=== PATIENT | female | born 1995 | race Caucasian/White ===

== ENCOUNTER 2020-03-21 13:30 | Outpatient (REF) | payer MEDICAID, SELFPAY ==
--- NOTE | 2020-03-21 13:39 | XR_ITS ---
EXAMINATION: XR LUMBOSACRAL SPINE WITH OBLIQUES CLINICAL INFORMATION: Low back pain. COMPARISON: None TECHNIQUE: 5 views of the lumbar spine FINDINGS: Normal alignment without subluxation. There appears be transitional anatomy, with apparent partial sacralization of the L5 vertebral body. Vertebral body heights are maintained. The disc spaces are maintained. No evidence of acute fracture. Bilateral SI joints are intact. XR/XR lumbar spine 4V min IMPRESSION: Suspected transitional anatomy, as detailed above. No evidence of acute osseous abnormality.
== END 2020-03-21 13:31 | disposition home or self-care (01) ==
LOC: HO.XRAY 13:30
PROVIDERS: PCP Internal Medicine; Visit Provider Internal Medicine
DX: M54.5 Low back pain (principal); V89.2XXS Person injured in unspecified motor-vehicle accident, traffic, sequela
CPT/HCPCS: 72110

== ENCOUNTER → 2020-10-25 13:51 | Outpatient (BNVA) | payer MEDICAID, SELFPAY | PROVIDERS: Visit Provider Advanced Practice Midwife | DX: N30.10 Interstitial cystitis (chronic) without hematuria (principal); Z87.42 Personal history of other diseases of the female genital tract | CPT/HCPCS: 99202 ==

== ENCOUNTER → 2021-05-07 10:01 | Outpatient (BNVA) | payer MEDICAID, SELFPAY | PROVIDERS: PCP Internal Medicine; Visit Provider Obstetrics & Gynecology | DX: Z34.01 Encounter for supervision of normal first pregnancy, first trimester (principal) | CPT/HCPCS: 99212 ==

== ENCOUNTER 2021-05-11 13:22 | Outpatient (REF) | payer MEDICAID, SELFPAY ==
--- NOTE | ~2021-05-11 | US_ITS ---
EXAMINATION: OBSTETRICAL ULTRASOUND, FIRST TRIMESTER HISTORY: 26-year-old at 7.1 weeks of gestation Irregular menses LMP: 03/22/2022 COMPARISON: None TECHNIQUE: Real time transabdominal imaging with color and M-mode Doppler. FINDINGS: A single, live IUP CRL of 10.1 mm c/w 7.1wks is noted. Heart Rate: 136 beats per minute. Both maternal ovaries are seen and appear normal. GESTATIONAL AGE: 1. GA from LMP: 7.1 wks 2. GA from AUA: 7.1 wks ESTIMATED DATE OF DELIVERY: 1. KELLY from LMP: 12/27/2021 2. KELLY from AUA: 12/27/2021 US/US OB <= 14 weeks fetus IMPRESSION: A single live IUP CRL is consistent with 7.1 weeks, confirming the KELLY of 12/27/2021. Thank you for allowing me to participate in her care.
== END 2021-05-11 13:23 | disposition home or self-care (01) ==
LOC: HO.US 13:22
PROVIDERS: Visit Provider Obstetrics & Gynecology
DX: Z34.91 Encounter for supervision of normal pregnancy, unspecified, first trimester (principal); Z3A.01 Less than 8 weeks gestation of pregnancy
CPT/HCPCS: 76801

== ENCOUNTER 2022-03-06 13:58 | Emergency (ER) | payer MEDICAID, SELFPAY ==
--- NOTE | ~2022-03-06 | XR_ITS ---
EXAMINATION: XR CHEST CLINICAL INFORMATION: Shortness of breath with question of viral pneumonia COMPARISON: None TECHNIQUE: Frontal view of the chest was obtained. FINDINGS: No significant abnormality is noted involving the heart, lungs, mediastinum, bony thorax or soft tissues. XR/XR chest 1V IMPRESSION: Unremarkable examination.
[2022-03-06 17:01] VITALS: BP 107/72; PULSE 92; RESP 16; TEMP 37.2; O2SAT 99; BMI 20.2
--- NOTE | 2022-03-06 17:10 | ED.URI ---
HPI - URI/Sore Throat General Chief Complaint: Upper Respiratory Symptoms <Juan Schultz MD - Last Filed: 03/06/22 17:19> Stated Complaint: flu like symptoms <Juan Schultz MD - Last Filed: 03/06/22 17:19> Time Seen by Provider: 03/06/22 18:29 <Juan Schultz MD - Last Filed: 03/06/22 17:19> Source: patient <MORGAN Dumont - Last Filed: 03/06/22 19:27> Mode of arrival: ambulatory <MORGAN Dumont - Last Filed: 03/06/22 19:27> Limitations: no limitations <MORGAN Dumont - Last Filed: 03/06/22 19:27> History of Present Illness HPI Narrative: This is a 27-year-old female currently 2 months presenting to the emergency department with dry cough, shortness of breath with coughing, nausea, body aches, fatigue, malaise, fevers x4 days. Patient tells me she feels like she has the flu symptoms started suddenly. Tells me she has a at home so she wanted to come in to get checked out. Patient reports when she took her temperature at home was 102. She tells me she only feels short of breath when she is coughing she does not experience shortness of breath with exertion or at rest. Patient denies headache, vision changes, vomiting, abdominal pain, chest pain, leg swelling, weakness. Patient eating and drinking without difficulty. Appears to be in good spirits. <MORGAN Dumont - Last Filed: 03/06/22 19:27> Related Data Home Medications: Home Medications Medication Instructions Recorded Confirmed vitamin with calcium 0 tab PO 05/07/21 no.72-iron 27 mg-folic acid 1 mg tablet (M- Plus) Previous Rx's Medication Instructions Recorded albuterol sulfate 2.5 mg/3 mL 2.5 mg (3 mL) inhalation Q6H #75 mL 03/06/22 (0.083 %) solution for nebulization benzonatate 100 mg capsule 100 mg PO BID PRN cough #20 caps 03/06/22 prednisone 20 mg tablet 40 mg PO DAILY 5 days #10 tabs 03/06/22 <Juan Schultz MD - Last Filed: 03/06/22 17:19> Allergies/Adverse Reactions: Allergies Allergy/AdvReac Type Severity Reaction Status Date / Time No Known Allergies Allergy Verified 10/25/20 14:06 [No Known Allergies*] <Juan Schultz MD - Last Filed: 03/06/22 17:19> Review of Systems Review of Systems: Constitutional : No Weight loss, + Fever, + Chills, + Fatigue, + Malaise ENT/Mouth : No sore throat, No Rhinorrhea Eyes: No Eye Pain, No Swelling, No Redness Cardiovascular : No Chest Pain, No SOB, No Dyspnea on Exertion, No Orthopnea, No Edema, No Palpitations Respiratory : + Cough, No Sputum, No Wheezing Gastrointestinal : No Nausea, No Vomiting, No Diarrhea, No Constipation, No abdominal Pain, No Hematochezia, No Melena Genitourinary : No Dysuria, No Urinary Frequency, No Hematuria, Musculoskeletal : No joint pain, + Myalgias, No Joint Swelling Skin : No Skin Lesions, No rash Neuro : No Weakness, No Numbness, No Dizziness, No Headache Psych : No Anxiety/Panic, No Depression All other systems reviewed and are negative <MORGAN Dumont - Last Filed: 03/06/22 19:27> Yes all other systems are reviewed and are negative <MORGAN Dumont - Last Filed: 03/06/22 19:27> PMFSH Past Medical History Attestation statement: The following information was validated with the patient. <MORGAN Dumont - Last Filed: 03/06/22 19:27> Source: old records reviewed and nursing notes reviewed <MORGAN Dumont - Last Filed: 03/06/22 19:27> Medical History: Medical History Interstitial cystitis <Juan Schultz MD - Last Filed: 03/06/22 17:19> Social History Social History: Social History Alcohol intake: never Patient Tobacco Use Status: Never used Tobacco Advance Directives: No Advance Directives Information Provided: No Gender identity: Female <Juan Schultz MD - Last Filed: 03/06/22 17:19> Physical Exam Vital Signs: Vital Signs: Last Vital Signs Temp 97.0 F 03/06/22 18:11 Pulse 80 03/06/22 18:59 Resp 16 03/06/22 18:59 BP 107/72 03/06/22 17:01 Pulse Ox 98 03/06/22 18:11 O2 Del Method 03/06/22 18:11 BMI result Body Mass Index 20.2 <Juan Schultz MD - Last Filed: 03/06/22 17:19> Vital Signs: Last Vital Signs Temp 97.0 F 03/06/22 18:11 Pulse 80 03/06/22 18:59 Resp 16 03/06/22 18:59 BP 107/72 03/06/22 17:01 Pulse Ox 98 03/06/22 18:11 O2 Del Method 03/06/22 18:11 BMI result Body Mass Index 20.2 vss <MORGAN Dumont - Last Filed: 03/06/22 19:27> Appearance: Alert.? Oriented X3.? No acute distress.? Head: Normocephalic, atraumatic, no step-offs or deformities Eyes: Pupils equal, round and reactive to light.? ENT: Pharynx normal.? Neck: Normal inspection.? Neck supple.? CVS: Normal heart rate and rhythm.? Pulses normal.? Respiratory: No respiratory distress.? Breath sounds with inspiratory and expiratory wheezing throughout..? Abdomen: Soft and nontender.? Skin: Skin warm and dry.? Normal skin color.? Normal skin turgor.? Extremities: No lower extremity edema.? No calf ttp. 5/5 strength to bilateral upper and lower extremities Neuro: Oriented X 3.? No motor deficit.? No sensory deficit. CN 2-12 intact <MORGAN Dumont - Last Filed: 03/06/22 19:27> Course Course Course Narrative: RME: 27-year-old female x2 months, prevents with upper respiratory infection with symptoms with fever, chills, cough, nausea, shortness of breath x4 days. Patient is not vaccinated for COVID were for influenza. Vital signs were normal. Patient is awake and alert, pleasant cooperative. HEENT exam: Head is normal cephalic, atraumatic, pupils were equal round reactive light, sclera contact however normal, PERRLA moist membranes. Neck: Supple with no adenopathy. Lungs: Clear to auscultation breath sounds symmetric bilaterally. Abdomen: Soft, nontender, nondistended with normoactive bowel sounds. Back: No CVA tenderness. Neurologic exam is nonfocal. I ordered COVID-19, influenza and RSV <Juan Schultz MD - Last Filed: 03/06/22 17:19> Reevaluation(s) Reevaluation #1: Chest x-ray unremarkable. Patient noted to be flu positive, not a candidate for Tamiflu as her symptoms have been ongoing for greater than 48 hours. Educated on supportive measures, proper hygiene. Advised to return with any new or worsening symptoms. At time of discharge patient with stable vitals, saturating 98% on room air, afebrile appears comfortable, tolerating p.o.. Comfortable discharge home. <MORGAN Dumont - Last Filed: 03/06/22 19:27> Time: 19:27 <MORGAN Dumont - Last Filed: 03/06/22 19:27> Medications Administered Discontinued Medications Generic Name Dose Route Start Last Admin Trade Name Freq PRN Reason Stop Dose Admin Albuterol Sulfate 7.5 mg/ 10 mg 03/06/22 18:40 03/06/22 18:53 Albuterol Sulfate 2.5 mg INHALE 03/06/22 18:41 10 mg ONCE ONE Administration <Juan Schultz MD - Last Filed: 03/06/22 17:19> Medications Administered Discontinued Medications Generic Name Dose Route Start Last Admin Trade Name Freq PRN Reason Stop Dose Admin Albuterol Sulfate 7.5 mg/ 10 mg 03/06/22 18:40 03/06/22 18:53 Albuterol Sulfate 2.5 mg INHALE 03/06/22 18:41 10 mg ONCE ONE Administration <MORGAN Dumont - Last Filed: 03/06/22 19:27> MDM - URI/Sore Throat MDM Narrative Medical decision making narrative: 1850 27-year-old female presents with flu-like symptoms x4 days. Physical exam significant for inspiratory and expiratory wheezing. Likely viral in origin, patient is not an asthmatic. Unlikely PE, pneumonia. Plan at this time is viral panel, chest x-ray. Will give patient albuterol treatment as she does have significant wheezing on exam. <MORGAN Dumont - Last Filed: 03/06/22 19:27> Medical Records Attestation: I reviewed the patient's medical records. <MORGAN Dumont - Last Filed: 03/06/22 19:27> Lab Data Attestation: I reviewed the patient's lab results. <MORGAN Dumont - Last Filed: 03/06/22 19:27> Labs: Lab Results 03/06/22 Range/Units 17:34 Influenza Type A (PCR) POSITIVE A (Negative) Influenza Type B (PCR) NEGATIVE (Negative) RSV RNA Qual (PCR) NEGATIVE (Negative) SARS-CoV-2 RNA (RT-PCR) NEGATIVE (Negative) <Juan Schultz MD - Last Filed: 03/06/22 17:19> Lab Results 03/06/22 Range/Units 17:34 Influenza Type A (PCR) POSITIVE A (Negative) Influenza Type B (PCR) NEGATIVE (Negative) RSV RNA Qual (PCR) NEGATIVE (Negative) SARS-CoV-2 RNA (RT-PCR) NEGATIVE (Negative) <MORGAN Dumont - Last Filed: 03/06/22 19:27> Discharge Plan Discharge Clinical Impression: Influenza, Wheezing <Juan Schultz MD - Last Filed: 03/06/22 17:19> Patient Disposition: Home, Self-Care <Juan Schultz MD - Last Filed: 03/06/22 17:19> Instructions: Influenza (ED), How to Use a Breath-Activated Inhaler (ED), Wheezing (ED) <Juan Schultz MD - Last Filed: 03/06/22 17:19> Additional Instructions: Take your medications as prescribed. If you were prescribed antibiotics today, it is important that you take your medication to their entirety, do not skip any doses, do not finish them early. Follow-up with your primary care provider this week. Return to the emergency department with new or worsening symptoms. Such as fevers, chills, chest pain, shortness of breath, nausea, vomiting, dizziness, headache, vision changes, lethargy In case of emergency call 911 You are contagious. Please practice good hygiene!. XR/XR chest 1V IMPRESSION: Unremarkable examination. ? <Juan Schultz MD - Last Filed: 03/06/22 17:19> Prescriptions: New albuterol sulfate 2.5 mg /3 mL (0.083 %) solution for nebulization 2.5 mg inhalation Q6H Qty: 75 0RF prednisone 20 mg tablet 40 mg PO DAILY 5 Days Qty: 10 0RF benzonatate 100 mg capsule 100 mg PO BID PRN (Reason: cough) Qty: 20 0RF No Action M-Aston Plus 27 mg iron- 1 mg tablet 0 tab PO <Juan Schultz MD - Last Filed: 03/06/22 17:19> Referrals: Elena Sims [Primary Care Provider] - 2 days <Juan Schultz MD - Last Filed: 03/06/22 17:19> Stand Alone Forms: Work/School Release <Juan Schultz MD - Last Filed: 03/06/22 17:19>
[2022-03-06 18:11] VITALS: PULSE 80; TEMP 36.1; O2SAT 98
[2022-03-06 18:34] LABS: Influenza A PCR POSITIVE (Negative); Influenza B PCR NEGATIVE (Negative); Resp Syncy Virus RNA Qual PCR NEGATIVE (Negative); SARS COV2 PCR INHOUSE NEGATIVE (Negative)
[2022-03-06] MEDS: Albuterol Sulfate 7.5 MG, Albuterol Sulfate (0.083%) 2.5 MG 10 MG INHALE (18:53)
[2022-03-06 18:59] VITALS: PULSE 80; RESP 16; O2SAT 98
--- NOTE | 2022-03-06 19:42 | PC.NURSE ---
Discharge instructions reviewed with pt. Pt verbalizes understanding.
== END 2022-03-06 19:43 | disposition home or self-care (01) ==
PROVIDERS: Emergency Medicine Emergency Medical Services; Emergency Provider Internal Medicine
DX: J11.1 Influenza due to unidentified influenza virus with other respiratory manifestations (principal); R06.2 Wheezing; R50.9 Fever, unspecified; Z20.822 Contact with and (suspected) exposure to COVID-19
CPT/HCPCS: 0241U; 71045; 94640; 99284

== ENCOUNTER 2023-04-15 14:38 | Outpatient (REF) | payer MEDICAID, SELFPAY ==
[2023-04-16 16:53] LABS: C. trachomatis RNA TMA NOT DETECTED (NOT DETECTED); Candida glabrata RNA NOT DETECTED (NOT DETECTED); Candida species RNA DETECTED (NOT DETECTED); N. gonorrhoeae RNA TMA NOT DETECTED (NOT DETECTED); Trichomonas vaginalis RNA NOT DETECTED (NOT DETECTED)
== END 2023-04-15 14:39 | disposition home or self-care (01) ==
LOC: HO.CHCLNP 14:38
PROVIDERS: Visit Provider Advanced Practice Midwife
DX: R39.89 Other symptoms and signs involving the genitourinary system (principal); N89.8 Other specified noninflammatory disorders of vagina
CPT/HCPCS: 36415; 81513; 87086; 87481; 87491; 87591; 87661

== ENCOUNTER 2023-05-22 10:47 | Outpatient (REF) | payer MEDICAID, SELFPAY ==
[2023-05-22 11:56] LABS: Estimated Average Glucose 94 mg/dL; Hemoglobin A1c % 4.9 % (<6.0)
== END 2023-05-22 10:48 | disposition home or self-care (01) ==
LOC: HO.HHCL 10:47
PROVIDERS: Visit Provider Advanced Practice Midwife
DX: B37.31 Acute candidiasis of vulva and vagina (principal)
CPT/HCPCS: 36415; 83036

== ENCOUNTER 2023-06-12 10:49 | Outpatient (AMB) | payer MEDICAID, SELFPAY ==
--- NOTE | 2023-06-12 11:20 | A.OFFVIS_ITS ---
Intake Intake Visit Reasons: bladder pain R39.89 (Hx of IC) Intake Note: NEW Patient presents today to established treatment for Bladder Pain: Meds- None Allergies to Antibiotic- No Known Allergies Blood Thinner- None Children'S Lunchroom Supervisor Required: No Accompanied by: Self / Same As Patient Allergies No Known Allergies [No Known Allergies*] Allergy (Verified 06/12/23 11:43) HPI HPI Comments History of Present Illness Details Ole is a 28-year-old female who states she was diagnosed with IC, 2018. She states that she followed the IC diet and used herbal supplements marshmellow roots which was helpful to keep her bladder symptoms under control. She is currently breast feeding. She states that her IC symptoms have flared up. I have reviewed the IC diet, pamphlets provided. Urinalysis-no signs of infection. Plan oxybutynin 10 mg [facility] Medical History Interstitial cystitis Social History Alcohol intake: never Patient Tobacco Use Status: Never used Tobacco Gender identity: Female Female Reproductive History Menstrual Age of Menarche: 15 Review of Systems Const All systems reviewed & are unremarkable except as noted in HPI and below Reports no additional complaints Eyes Reports no additional complaints ENT Reports no additional complaints Card Reports no additional complaints Resp Reports no additional complaints GI Reports no additional complaints Reports as per HPI Musc Reports no additional complaints Skin/Breast Reports system reviewed and no additional complaints, except as documented Neuro Reports no additional complaints Psych Reports no additional complaints Endo Reports no additional complaints David/Lymph Reports no additional complaints Aller/Immun Reports no additional complaints Physical Exam Const General: cooperative, healthy appearing and no acute distress Orientation/consciousness: patient oriented x3 HEENT Head: Yes normal to inspection, Yes normocephalic and Yes atraumatic Eyes Conjunctivae: conjunctivae normal Neck Neck: Yes normal visual inspection and Yes trachea midline Chest Chest palpation & inspection: normal inspection of the chest Resp Effort & Inspection: normal respiratory effort Cardio Rate: regular rate GI Inspection: Yes normal to inspection Skin General skin exam: no rashes or lesions noted Neuro General: patient oriented x3 Extrem General: No edema Psych Appearance: grossly normal Results AMB Urinalysis, Automated UA Leukoctes 0 Mendez/uL Last Edit by ROMEL Schwarz on 06/12/23 11:42 UA Nitrite Negative Last Edit by ROMEL Schwarz on 06/12/23 11:42 UA Urobilinogen 0.2 mg/dL Last Edit by ROMEL Schwarz on 06/12/23 11:4 2 UA Protein 0 mg/dL Last Edit by ROMEL Schwarz on 06/12/23 11:42 UA pH 8.0 Last Edit by ROMEL Schwarz on 06/12/23 11:42 UA Blood 0 Wilbert/uL Last Edit by ROMEL Schwarz on 06/12/23 11:42 UA Specific [place] 1.010 Last Edit by ROMEL Schwarz on 06/12/23 11: 42 UA Ketone Negative Last Edit by ROMEL Schwarz on 06/12/23 11:42 UA Bilirubin 0 mg/dL Last Edit by ROMEL Schwarz on 06/12/23 11:42 UA Glucose 0 mg/dL Last Edit by Serge Doan Linus on 06/12/23 11:42 Results Reviewed Results Reviewed: Laboratory Last Values Urine pH (Auto) 8.0 06/12/23 11:37 Specific [place] (Auto) 1.010 06/12/23 11:37 Urine Protein (Auto) 0 mg/dL 06/12/23 11:37 Glucose (UA)(Auto) 0 mg/dL 06/12/23 11:37 Urine Ketones (Auto) Negative 06/12/23 11:37 Urine Blood (Auto) 0 Wilbert/uL 06/12/23 11:37 Urine Nitrite (Auto) Negative 06/12/23 11:37 Urine Bilirubin (Auto) 0 mg/dL 06/12/23 11:37 Urine Urobilinogen (Auto) 0.2 mg/dL 06/12/23 11:37 Leukocyte Esterase (Auto) 0 Mendez/uL 06/12/23 11:37 Assessment & Plan Assessment & Plan (1) Urinary frequency: Code(s): R35.0 - Frequency of micturition (2) Chronic interstitial cystitis: Code(s): N30.10 - Interstitial cystitis (chronic) without hematuria Plan Oxybutynin 10 mg daily Renal ultrasound complete Orders: Orders AMB Urinalysis Automated 06/12/23 Z13.9 - Encounter for screening, unspecified US retroperitoneal comp 06/12/23 R35.0 - Frequency of micturition Medications: New oxybutynin chloride ER 10 mg PO DAILY 30 tabs 3RF Patient Instructions: The patient had an opportunity to ask questions regarding treatment plan. All questions were answered. The patient expressed understanding and agreement with the above treatment plan. The patient is aware they should contact our office by phone for worsening of their current condition or the appearance of new symptoms. Compliance is encouraged with any medications and followup testing that is ordered. It is a privilege to be allowed the opportunity to participate in the urologic care of your patient. If you have any questions or concerns regarding treatment for the above conditions please do not hesitate to contact me. The office telephone contact is [phone]. This note is constructed in part using voice recognition software. While every effort has been made to ensure accuracy bridge inspector errors may have been included. Yours sincerely, Sudha Choi MD Coding Level of Care Code New Pt Level 3 (35455) Diagnoses Urinary frequency R35.0 Chronic interstitial cystitis N30.10
== END 2023-06-12 12:02 | disposition home or self-care (01) ==
PROVIDERS: Visit Provider Urology
DX: R35.0 Frequency of micturition (principal); N30.10 Interstitial cystitis (chronic) without hematuria
CPT/HCPCS: 99203

== ENCOUNTER → 2023-06-12 10:49 | Outpatient (BNVA) | payer MEDICAID, SELFPAY | PROVIDERS: Visit Provider Urology | DX: R35.0 Frequency of micturition (principal); N30.10 Interstitial cystitis (chronic) without hematuria | CPT/HCPCS: 81003; 99202 ==

== ENCOUNTER 2023-07-10 14:27 | Outpatient (REF) | payer MEDICAID, SELFPAY ==
--- NOTE | ~2023-07-10 | US_ITS ---
EXAMINATION: US RETROPERITONEAL COMPLETE (RENAL) CLINICAL INFORMATION: Frequency of micturition. COMPARISON: None available. TECHNIQUE: Real-time imaging of the kidneys and bladder. FINDINGS: RIGHT KIDNEY: 10.4 x 3.9 x 5.5 cm (SAG x AP x TRV). The kidney is normal in size, contour, and echogenicity. Renal cortical thickness is normal. No calculi or focal parenchymal lesions. No hydronephrosis. LEFT KIDNEY: 10.3 x 4.6 x 4.0 cm (SAG x AP x TRV). The kidney is normal in size, contour, and echogenicity. Renal cortical thickness is normal. No calculi or focal parenchymal lesions. No hydronephrosis. Cannot exclude a duplicated collecting system. BLADDER: The bladder is well-distended. Echogenic debris is noted throughout the bladder. There is mild thickening particularly of the posterior bladder wall. Bilateral ureteral jets are demonstrated. Prevoid bladder volume is 254 mL. Postvoid bladder volume is 7.1 mL. US/US retroperitoneal comp IMPRESSION: 1. Echogenic debris is noted throughout the bladder. There is mild thickening of the posterior bladder wall. Findings are nonspecific but may represent cystitis. Correlation with urinary analysis recommended. 2. No renal calculi or hydronephrosis of either kidney. Cannot exclude a duplicated left renal collecting system.
== END 2023-07-10 14:28 | disposition home or self-care (01) ==
LOC: HO.US 14:27
PROVIDERS: PCP Internal Medicine; Visit Provider Urology
DX: R35.0 Frequency of micturition (principal)
CPT/HCPCS: 76770

== ENCOUNTER 2023-07-21 20:43 | Emergency (ER) | payer MEDICAID, SELFPAY ==
[2023-07-21 21:00] VITALS: BP 98/55; PULSE 106; RESP 18; TEMP 37.6; O2SAT 98; BMI 22.4
[2023-07-21 22:21] LABS: Influenza A PCR NEGATIVE (Negative); Influenza B PCR NEGATIVE (Negative); Resp Syncy Virus RNA Qual PCR NEGATIVE (Negative); SARS COV2 PCR INHOUSE NEGATIVE (Negative)
[2023-07-22] VITALS: BP 99/63; PULSE 103; RESP 16; TEMP 37.2; O2SAT 98
--- OUTSIDE RECORDS SUMMARY | 2023-07-22 01:06 | XMS_ITS | Continuity of Care Document ---
Author Organization [facility] Address [address] [place] [id number]- Care Team Providers Care Network Technical Analyst Name Role Phone Brittnee Rowe MD Primary Care Physician [place] [facility] [place] - 01/10/[address] [id number] Attending Physician: Gwendolyn Amaro MD Admitting Physician: Gwendolyn Amaro MD Referring Physician: Yanira Gotti CNM Allergies, Adverse Reactions, Alerts Substance Reaction Severity Status Nuts Active Patient Care team information Personnel Name: Brittnee Rowe MD Address: Address: [address] [place] [id number]
--- OUTSIDE RECORDS SUMMARY | 2023-07-22 01:07 | XMS_ITS | Continuity of Care Document ---
Author Organization [facility] ter Address [address] [place] [id number]- Care Team Providers Care Bow Maker Name Role Phone Jae PERAZA, Brittnee Cardona Primary Care Physician Encounter [facility] Date(s): 12/12/21 - 12/14/[address] [id number] Discharge Disposition: A-D/C Home Attending Physician: Abril Adams DO Admitting Physician: Abril Adams DO Referring Physician: Reji Lozano MD Allergies, Adverse Reactions, Alerts Substance Reaction Severity Status Nuts Active Medications No Known Medications Vital Signs Most recent to oldest [Reference Range]: 1 2 3 Height 149.86 cm (12/14/21 12:00 AM) 149.86 cm (12/13/21 8:00 AM) 149.86 cm (12/13/21 2:30 AM) Weight 55.45 kg (12/12/21 3:41 PM) Oxygen Saturation [94-100 %] 99 % (12/14/21 9:11 AM) 99 % (12/14/21 12:00 AM) 100 % (12/13/21 2:30 AM) Pulse Rate [55-90 bpm] 62 bpm (12/14/21 9:11 AM) 70 bpm (12/14/21 12:00 AM) 64 bpm (12/13/21 3:43 PM) Body Mass Index [18.5-24.99] 24.69 (12/12/21 3:41 PM) Blood Pressure [90-138/55-84 mm Hg] 95/52mm Hg (12/14/21 9:11 AM) 112/75mm Hg (12/14/21 12:00 AM) 117/75mm Hg (12/13/21 3:43 PM) Respiratory Rate [16-30 br/min] 18 br/min (12/14/21 9:11 AM) 18 br/min (12/14/21 12:00 AM) 18 br/min (12/13/21 3:43 PM) Temperature [96.8-100.4 DegF] 98.5 DegF (12/14/21 9:11 AM) 98.9 DegF (12/14/21 12:00 AM) 97.9 DegF (12/13/21 3:43 PM) Mode of Delivery (Oxygen) Room air (12/14/21 9:11 AM) Room air (12/13/21 2:30 AM) Room air (12/12/21 9:39 PM) Blood pressure sites Arm, right 1 (12/12/21 3:41 PM) Temperature Route Oral (12/14/21 9:11 AM) Oral (12/14/21 12:00 AM) Oral (12/13/21 3:43 PM) Dry Weight 55.45 kg (12/12/21 3:41 PM) 1Result Comment: 23cm Care Team Personnel Name: Jae PERAZA, Brittnee Cardona Address: [address] [place] [address]
--- OUTSIDE RECORDS SUMMARY | 2023-07-22 01:07 | XMS_ITS | Continuity of Care Document ---
Author Organization [facility] Address [address] [place] [id number]- Care Team Providers Care Lay Ups Assembler Name Role Phone Brittnee Rowe MD Primary Care Physician Encounter [facility] [place] Date(s): 12/11/21 - 01/16/[address] [id number] Attending Physician: Gwendolyn Amaro MD Admitting Physician: Gwendolyn Amaro MD Referring Physician: Yanira Gotti CNM Allergies, Adverse Reactions, Alerts Substance Reaction Severity Status Nuts Active Patient Care team information Personnel Name: Brittnee Rowe MD Address: Address: [address] [place] [id number]
--- OUTSIDE RECORDS SUMMARY | 2023-07-22 01:07 | XMS_ITS | Continuity of Care Document ---
Author Organization [facility] Address [address] [place] [address]- Care Team Providers Care Bilingual Instructor Name Role Phone Kierra PERAZA, Disha Esparza Primary Care Physician [phone] Encounter [facility] [place] Date(s): 07/15/21 - 08/14/21 [facility] [address] [place], [place] [address] Attending Physician: Faith Lopez Admitting Physician: Faith Lopez Referring Physician: Admtr, Ar8 Allergies, Adverse Reactions, Alerts No Known Allergies
--- OUTSIDE RECORDS SUMMARY | 2023-07-22 01:07 | XMS_ITS | Continuity of Care Document ---
Author Organization [facility] Address [address] [place] [id number]- Care Team Providers Care Erosion Control Coordinator Name Role Phone Brittnee Rowe MD Primary Care Physician Encounter [facility] [place] Date(s): 11/12/21 - 12/12/21 [facility] [address] [place] [id number] [place] Allergies, Adverse Reactions, Alerts Substance Reaction Severity Status Nuts Active Care Team Personnel Name: Brittnee Rowe MD Address: [address] [place], [place] [address]
--- OUTSIDE RECORDS SUMMARY | 2023-07-22 01:07 | XMS_ITS | Continuity of Care Document ---
Author Organization [facility] ter Address [address] [place] [address]- Care Team Providers Care Farm Implement Engine Mechanic Name Role Phone Jae PERAZA, Brittnee Cardona Primary Care Physician Encounter [facility] [place] Date(s): 11/22/21 - 11/22/[address] [address] Discharge Disposition: A-D/C Home Attending Physician: Kyra Silva MD Admitting Physician: Kyra Silva MD Referring Physician: Yanira Gotti CNM Allergies, Adverse Reactions, Alerts No Known Allergies
--- OUTSIDE RECORDS SUMMARY | 2023-07-22 01:07 | XMS_ITS | Continuity of Care Document ---
Author Organization [facility] Address [address] [place] [id number]- Care Team Providers Care Piece Dyer Name Role Phone Brittnee Rowe MD Primary Care Physician [place] [facility] [place](s): 11/29/21 - 11/29/[address] [address] Discharge Disposition: A-D/C Home Attending Physician: Kyra Silva MD Admitting Physician: Kyra Silva MD Referring Physician: Yanira Gotti CNM Allergies, Adverse Reactions, Alerts No Known Allergies Care Team Personnel Name: Brittnee Rowe MD Address: [address] [place] [id number]
--- OUTSIDE RECORDS SUMMARY | 2023-07-22 01:07 | XMS_ITS | Continuity of Care Document ---
Author Organization [facility] Address [address] [place] [phone]- Care Team Providers Care Trimmer Loader Name Role Phone Brittnee Rowe MD Primary Care Physician Encounter [facility] Date(s): 11/12/21 - 12/12/21 [facility] [address] [place] [id number] Attending Physician: Admtr, Ar8 Admitting Physician: Admtr, Ar8 Referring Physician: Admtr, Ar8 Allergies, Adverse Reactions, Alerts Substance Reaction Severity Status Nuts Active Care Team Personnel Name: Brittnee Rowe MD Address: [address]
--- OUTSIDE RECORDS SUMMARY | 2023-07-22 01:07 | XMS_ITS | Continuity of Care Document ---
Author Organization [facility] Address [address] [place] [phone]- Care Team Providers Care Permit Coordinator Name Role Phone Brittnee Rowe MD Primary Care Physician Encounter [facility] Date(s): 12/03/21 - 01/05/[address] [id number] Attending Physician: Gwendolyn Amaro MD Admitting Physician: Gwendolyn Amaro MD Referring Physician: Yanira Gotti CNM Allergies, Adverse Reactions, Alerts Substance Reaction Severity Status Nuts Active Patient Care team information Personnel Name: Brittnee Rowe MD Address: Address: [address] [place] [id number]
--- OUTSIDE RECORDS SUMMARY | 2023-07-22 01:07 | XMS_ITS | Continuity of Care Document ---
Author Organization [facility] Address [address] [place] [phone]- Care Team Providers Care Felt Finisher Name Role Phone Brittnee Rowe MD Primary Care Physician Encounter [facility] Date(s): 12/03/21 - 01/02/22 [facility] [address] [place] [phone]- [place] Allergies, Adverse Reactions, Alerts Substance Reaction Severity Status Nuts Active Patient Care team information Personnel Name: Brittnee Rowe MD Address: Address: [address] [place] [phone]
--- OUTSIDE RECORDS SUMMARY | 2023-07-22 01:07 | XMS_ITS | Continuity of Care Document ---
Author Organization [facility] Address [address] [place] [phone]- Care Team Providers Care Diagnostic Sales Specialist Name Role Phone Brittnee Rowe MD Primary Care Physician Encounter [facility] Date(s): 12/08/21 - 01/13/[address] [id number] Attending Physician: Yanira Gotti CNM Admitting Physician: Yanira Gotti CNM Referring Physician: Yanira Gotti CNM Allergies, Adverse Reactions, Alerts Substance Reaction Severity Status Nuts Active Patient Care team information Personnel Name: Brittnee Rowe MD Address: Address: [address] [place] [id number]
--- OUTSIDE RECORDS SUMMARY | 2023-07-22 01:07 | XMS_ITS | Continuity of Care Document ---
Author Organization [facility] Address [address] [place] [phone]- Care Team Providers Care Beef Selector Name Role Phone Brittnee Rowe MD Primary Care Physician Encounter [facility] Date(s): 11/06/21 - 12/06/21 [facility] [address] [place] [phone]- [place] Allergies, Adverse Reactions, Alerts No Known Allergies Care Team Personnel Name: Brittnee Rowe MD Address: [address] [place] [phone]
--- OUTSIDE RECORDS SUMMARY | 2023-07-22 01:07 | XMS_ITS | Continuity of Care Document ---
Author Organization [facility] Address [address] [place] [phone]- Care Team Providers Care Site Technician Name Role Phone Jae PERAZA, Brittnee Cardona Primary Care Physician Encounter [facility] Date(s): 11/15/21 - 11/15/[address] [id number] Discharge Disposition: A-D/C Home Attending Physician: Kyra Silva MD Admitting Physician: Kyra Silva MD Referring Physician: Yanira Gotti CNM Allergies, Adverse Reactions, Alerts No Known Allergies
--- OUTSIDE RECORDS SUMMARY | 2023-07-22 01:07 | XMS_ITS | Continuity of Care Document ---
Author Organization [facility] Address [address] [place] [address]- Care Team Providers Care Trimming Assembler Name Role Phone Not on Staff, PCP Primary Care Physician Unavail able Encounter [facility] Date(s): 07/15/21 - 07/22/21 [facility] [address] [place] [address]- Encounter Diagnosis Dysuria(Discharge Diagnosis) - 07/15/21 Dysuria in in second trimester(Discharge Diagnosis) - 07/15/21 Attending Physician: Harshad Gallardo DO Referring Physician: Brittnee Rowe MD Allergies, Adverse Reactions, Alerts No Known Allergies Medications sulfamethoxazole-trimethoprim 800 mg-160 mg oral tablet 1 tablet, By Mouth, Every 12 hours, for 5 days, # 10 tablet, 0 Refills, Acute 07/23/21 12:52:00 EDT, 07/18/21 12:52:00 EDT, Tablet, [id number], Partial fill upon patient request if the prescription is for a schedule II opioid drug., 1 tablet B... Start Date: 07/18/21 Stop Date: 07/23/21 Status: Ordered Problem List Diagnosis Diagnosis Type Effective Dates Health Status Cl inical Service Informant Dysuria Discharge Diagnosis 07/15/21 Dysuria in in second trimester Discharge Diagnosis 07/15/21 Vital Signs Most recent to oldest [Reference Range]: 1 Oxygen Saturation [94-100 %] 100 % (07/15/21 12:38 PM) Pulse Rate [55-90 bpm] 84 bpm (07/15/21 12:38 PM) Blood Pressure [90-138/55-84 mm Hg] 106/ 53mm Hg (07/15/21 12:38 PM) Respiratory Rate [16-30 br/min] 18 br/mi n (07/15/21 12:38 PM) Temperature [96.8-100.4 DegF] 98.3 DegF (07/15/21 12:38 PM) Mode of Delivery (Oxygen) Room air (07/15/21 12:38 PM) Blood pressure sites Arm, right (07/15/21 12:38 PM) Temperature Route Temporal (07/15/21 12:38 PM)
== END 2023-07-22 01:47 | disposition left against medical advice (07) ==
PROVIDERS: Emergency Provider Emergency Medicine; PCP Internal Medicine
DX: R50.9 Fever, unspecified (principal); R52 Pain, unspecified
CPT/HCPCS: 0241U; 99281; 99283

== ENCOUNTER 2023-07-23 15:38 | Outpatient (REF) | payer MEDICAID, SELFPAY ==
[2023-07-23 17:15] LABS: Alanine Aminotransferase 40 U/L (0-31); Aspartate Amino Transferase 27 U/L (5-31)
== END 2023-07-23 15:39 | disposition home or self-care (01) ==
LOC: HO.HHCL 15:38
PROVIDERS: Visit Provider Advanced Practice Midwife
DX: Z79.899 Other long term (current) drug therapy (principal)
CPT/HCPCS: 36415; 84450; 84460

== ENCOUNTER 2023-08-01 15:07 | Outpatient (REF) | payer MEDICAID, SELFPAY ==
[2023-08-01 16:43] LABS: Alanine Aminotransferase 11 U/L (0-31)
[2023-08-02 04:51] LABS: HBc Num1 0.09 S/CO (0.00-0.79); Hepatitis A Antibody IgM 0.17 Index (0-0.79); Hepatitis B Core Antibody Nonreactive (Nonreactive); Hepatitis B Surface Antigen Negative (Negative); ~HepC Num1 0.13 S/CO (0.00-0.79); ~Hepatitis A Antibody IgM Nonreactive (Nonreactive); ~Hepatitis B Surface Antibody REACTIVE (Nonreactive); ~Hepatitis C Antibody Nonreactive (Nonreactive)
== END 2023-08-01 15:08 | disposition home or self-care (01) ==
LOC: HO.HHCL 15:07
PROVIDERS: Visit Provider Advanced Practice Midwife
DX: R74.01 Elevation of levels of liver transaminase levels (principal)
CPT/HCPCS: 36415; 84460; 86704; 86706; 86709; 86803; 87340

== ENCOUNTER 2023-09-25 15:30 | Outpatient (REF) | payer MEDICAID, SELFPAY ==
[2023-09-25 16:34] LABS: Alanine Aminotransferase 15 U/L (0-31); Aspartate Amino Transferase 22 U/L (5-31)
== END 2023-09-25 15:31 | disposition home or self-care (01) ==
LOC: HO.HHCL 15:30
PROVIDERS: Visit Provider Advanced Practice Midwife
DX: Z79.899 Other long term (current) drug therapy (principal)
CPT/HCPCS: 36415; 84450; 84460

== ENCOUNTER 2024-03-11 17:45 | Outpatient (REF) | payer MEDICAID, SELFPAY ==
[2024-03-12 08:30] LABS: Bacterial Vaginosis PCR NEGATIVE (Negative); Candida Group PCR DETECTED (Not Detect); Candida glab krusei PCR NOT DETECTED (Not Detect); Trichomonas vaginalis PCR NOT DETECTED (Not Detect)
== END 2024-03-11 17:46 | disposition home or self-care (01) ==
LOC: HO.HHCLNP 17:45
PROVIDERS: Visit Provider Advanced Practice Midwife
DX: N89.8 Other specified noninflammatory disorders of vagina (principal)
CPT/HCPCS: 0352U

== ENCOUNTER 2025-02-03 10:27 | Outpatient (REF) | payer MEDICAID, SELFPAY ==
--- OUTSIDE RECORDS SUMMARY | 2025-02-03 09:45 | XMS_ITS | Encounter Summary ---
Author Organization [facility] Address [address] [facility] [address] [place] [address] Care Team Providers Care Business Solutions Analyst Name Role Phone Brittnee Rowe MD Primary Care Provider + Encounter Details Date Type Department Care Team ([facility] st Contact Info) Description 02/03/2025 9:45 AM EDT Office Visit [facility] [address], [place] [phone] Brittnee Rowe MD [address] [place], [place] [phone] Vaccination declined (Primary Dx); Vaginal discomfort; Visit for preventive health examination; Screen for STD (sexually transmitted disease); Intrinsic eczema Social History Tobacco Use Types Packs/Day Years Used Date Smoking Tobacco: Never Passive Smoke Exposure: Never Smokeless Tobacco: Never Alcohol Use Standard Drinks/Week Comments Never 0 (1 standard drink = 0.6 oz pur e alcohol) Depression Answer Date Recorded Patient Health Questionnaire-9 Score 0 08/19/2024 Patient Health Questionnaire-9 Score 0 08/19/2024 Last PHQ-9: Questionnaire Data Not on file 0 08/19/2024 Housing Stability Answer Date Recorded What is your housing situation today? I have housing today, but I am worried about losing housing in the future 07/23/[address] you li ve. Do you have problems with any of the following? None of the above 07/23/2024 Food Insecurity Answer Date Recorded Within the past 12 months, y ou worried that your food would run out before you got money to buy more: Never True 05/22/2023 Within the past 12 months,th e food you bought just didn't last and you didn't have enough money to get more: Never True Transportation Answer Date Recorded In the past 12 months, has l ack of transportation kept you from medical appts, meetings, work or from getting things needed for daily living? No 05/22/2023 Utilities Answer Date Recorded In the past 12 months, has t he electric, gas, oil or water company threatened to shut off services in your home? No 05/22/2023 Depression Answer Date Recorded Patient Health Questionnaire-2 Score 0 08/19/2024 Internet Access Answer Date Recorded Internet Access Q1 Yes 07/23/2024 Internet Access Q2 Not on file 07/23/2024 Comments No Sex and Gender Information Value Date Recorded Sex Assigned at Female 02/04/2022 10:17 AM EDT Legal Sex Female 10:17 AM EDT Gender Identity Female 02/04/2022 10:17 AM EDT Sexual Orientation Straight 02/04/2022 10 :17 AM EDT documented as of this encounter Last Filed Vital Signs Vital Sign Reading Time Taken Comments Blood Pressure 90/58 02/03/2025 9:45 AM EDT Pulse 70 02/03/2025 9:45 AM EDT Temperature 36.3 C (97.3 F) 02/03/2025 9:45 AM EDT Respiratory Rate 14 02/03/2025 9:45 AM EDT Oxygen Saturation - - Inhaled Oxygen Concentration - - Weight 46.8 kg (103 lb 3.2 oz) 02/03/2025 9:45 A M EDT Height 149.9 cm (4' 11 ) 02/03/2025 9:45 AM EDT Body Mass Index 20.84 02/03/2025 9:45 AM EDT documented in this encounter Plan of Treatment Upcoming Encounters Date Type Department Care Team (Late st Contact Info) Description 04/22/2025 11:30 AM EST Procedure Visit [facility] [address] [place] [address] Brittnee Rowe MD [address] [place] [address] Scheduled Orders Name Type Priority Associated Diagnoses Orde r Schedule Syphilis Screen Lab Routine Screen for STD (sexually transmitted disease) Expected: 02/03/2025 (Approximate), Expires: 02/03/2026 Chlamydia/Trichomonas /Neisseria gonorrhoeae, PCR, Urine Lab Routine Vaginal discomfort Expected: 02/03/2025 (Approximate), Expires: 02/03/2026 Bacterial Vaginosis Microbiology Routine Vaginal discomfort Expected: 02/03/2025 (Approximate), Expires: 02/03/2026 documented as of this encounter Procedures Procedure Name Priority Date/Time Associated Diagnosis Comments TSH W/REFLEX TO FT4 Routine 02/03/2025 1 0:33 AM EDT Screen for STD (sexually transmitted disease) HEPATITIS PANEL, GENERAL Routine 02/03/2025 10:33 AM EDT Screen for STD (sexually transmitted disease) CBC WITH AUTO DIFFERENTIAL Routine 02/03/2025 10:33 AM EDT Vaginal discomfort HIV 1/2 ANTIGEN/ANTIBODY, FOURTH GENERATION W/RFL Routine 02/03/2025 10:33 AM EDT Screen for STD (sexually transmitted disease) FERRITIN Routine 02/03/2025 10:33 AM EDT Vaginal discomfort documented in this encounter Results * Ferritin (02/03/2025 10:33 AM EDT) Ferritin 89 10 - 122 ng/mL [facility] Blood Venous blood specimen / Unknown 02/03/2025 10:33 AM EDT 02/03/2025 11:34 AM EDT us Brittnee Rowe MD LAB BLOOD ORDERABLES Fin al Result [facility] [address] [place] [phone] [phone] * CBC auto differential (02/03/2025 10:33 AM EDT) White Blood Count 5.7 4.8 - 10.8 X10*3/uL [facility] Red Blood Count 4.47 4.20 - 5.50 X10*6/uL [facility] Hemoglobin 12.8 12.0 - 16.0 g/dl [facility] Hematocrit 39.8 37.0 - 47.0 % [facility] Mean Corpuscular Volume 89.0 80.0 - 98.0 fL [facility] Mean Corpuscular Hemoglobin 28.6 27.0 - 33.0 pg [facility] Mean Corpuscular HGB Conc 32.2 31.0 - 35.0 g/dl [facility] Red Cell Distribution Width 14.1 11.0 - 16.0 % [facility] Platelet Count 238 160 - 400 X10*3/uL [facility] Mean Platelet Volume 10.9 9.4 - 12.3 fL [facility] Neutrophils Percent Auto 53.1 45 - 73 % [facility] Imm Gran Pct Auto 0.3 0.0 - 0.4 % [facility] Lymphocytes Percent Auto 37.4 20 - 40 % [facility] Monocytes Percent Auto 7.3 2 - 11 % [facility] Eosinophils Percent Auto 1.6 0 - 4 % [facility] Basophils Percent Auto 0.3 0 - 2 % [facility] NRBC Pct Auto 0.0 0.0 - 0.2 /100WBC [facility] Neutrophils Absolute Auto 3.0 2.0 - 8.3 x10*3/uL [facility] Imm Gran Abs Auto 0.02 0.00 - 0.03 X10*3/uL [facility] Lymphocytes Absolute Auto 2.1 1.2 - 4.9 X10*3/uL [facility] Monocytes Absolute Auto 0.4 0.1 - 1.2 X10*3/uL [facility] Eosinophils Absolute Auto 0.1 0.0 - 0.4 X10*3/uL [facility] Basophils Absolute Auto 0.0 0.0 - 0.2 X10*3/uL [facility] NRBC Abs Auto 0.000 0.0 - 0.012 X10*3/uL [facility] Blood Venous blood specimen / Unknown 02/03/2025 10:33 AM EDT 02/03/2025 11:24 AM EDT Brittnee Rowe MD LAB BLOOD ORDERABLES Fin al Result Performing Organization Address [facility] Co de Phone Number [facility] [address] [place] [phone] * TSH with Reflex to Free T4 (02/03/2025 10:33 AM EDT) TSH reflex Free T4 2.74 0.32 - 4.0 uIU/mL [facility] Blood 02/03/2025 10:3 3 AM EDT 02/03/2025 11:34 AM EDT us Brittnee Rowe MD LAB BLOOD ORDERABLES Fin al Result Performing Organization Address [facility] de Phone Number [facility] [address] [place] [phone] * Hepatitis Panel, General (02/03/2025 10:33 AM EDT) Hepatitis A IgM Nonreactive Nonreactive [facility] Comment:IgM antibodies to BURKS V not detected; does not exclude earlyacute or recovered HAV infection. ~Hepatitis B Surface Antibody REACTIVE Nonreactive [facility] Comment:REACTIVE: > 11.99 mI U/mL Hepatitis B Core Antibody Nonreactive Nonreactive [facility] Hepatitis C Antibody Nonreactive Nonreactive [facility] Comment:Antibodies to HCV no t detected; does not exclude early acuteHCV infection. Hepatitis B Surface Ag Negative Negative [facility] Blood 02/03/2025 10:3 3 AM EDT 02/03/2025 11:34 AM EDT Brittnee Rowe MD LAB BLOOD ORDERABLES Fin al Result Performing Organization Address [facility] Co de Phone Number [facility] [address] [place] [phone] * HIV-1/2 Antigen and Antibodies, Fourth Generation, with Reflexes (02/03/2025 10:33 AM EDT) HIV AB/AG Nonreactive Nonreactive [facility] Comment:HIV-1 p24 Ag and/or HIV-1/HIV-2 Ab not detected.A test result that is nonreactive does not exclude thepossibility of exposure to or infection with HIV-1 and/orHIV-2. Nonreactive results in this assay for individualswith prior exposure to HIV-1 and/or HIV-2 may be due toantigen and antibody levels that are below the limit ofdetection of this assay.The Total-trax HIV Ag/Ab Combo assay result andsupplemental assay results should be interpreted inconjunction with the patient's clinical presentation,history and other laboratory results. If the results areinconsistent with clinical evidence, additional testing issuggested to confirm the result. Blood Venous blood specimen / Unknown 02/03/2025 10:33 AM EDT 02/03/2025 11:34 AM EDT us Brittnee Rowe MD LAB BLOOD ORDERABLES Fin al Result Performing Organization Address City/State/[facility] Co de Phone Number [facility] [address] [place] [phone] documented in this encounter Visit Diagnoses Diagnosis Vaccination declined- Primary Vaginal discomfort Visit for preventive health examination Screen for STD (sexually transmitted disease) Screening examination for venereal disease Intrinsic eczema documented in this encounter Additional Health Concerns Assessment Noted Time PHQ-9 Depression Total Score: 0 08/20/19 25 1:24 PM EDT documented as of this encounter Care Teams Business Solutions Analyst Relationship Specialty Start Date End Date Brittnee Rowe MD [address] [place] [phone] PCP - General Family Medicine 02/12/16 documented as of this encounter
[2025-02-03 11:31] LABS: MANUAL DIFF FLAG NO
[2025-02-03 11:46] LABS: Hematocrit 39.8 % (37.0-47.0); Hemoglobin 12.8 g/dl (12.0-16.0); Imm Gran Abs Auto 0.02 X10*3/uL (0.00-0.03); Imm Gran Pct Auto 0.3 % (0.0-0.4); Lymphocytes Absolute Auto 2.1 X10*3/uL (1.2-4.9); Mean Corpuscular HGB Conc 32.2 g/dl (31.0-35.0); Mean Corpuscular Hemoglobin 28.6 pg (27.0-33.0); Mean Corpuscular Volume 89.0 fL (80.0-98.0); NRBC Abs Auto 0.000 X10*3/uL (0.0-0.012); NRBC Pct Auto 0.0 /100WBC (0.0-0.2); Platelet Count 238 X10*3/uL (160-400); Red Blood Count 4.47 X10*6/uL (4.20-5.50); White Blood Count 5.7 X10*3/uL (4.8-10.8)
[2025-02-03 12:28] LABS: Ferritin 89 ng/mL (10-122)
[2025-02-03 12:29] LABS: Hepatitis A Antibody IgM 0.22 Index (0-0.79); ~Hepatitis A Antibody IgM Nonreactive (Nonreactive)
[2025-02-03 12:38] LABS: HBc Num1 0.07 S/CO (0.00-0.79); HBsAGNum1 0.49 S/CO (0.00-0.99); HIV Num 1 0.09 S/CO (0.00-0.99); Hepatitis B Surface Antigen Negative (Negative); ~HepC Num1 0.15 S/CO (0.00-0.79); ~Hepatitis B Surface Antibody REACTIVE (Nonreactive); ~Hepatitis C Antibody Nonreactive (Nonreactive)
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
--- OUTSIDE RECORDS SUMMARY | 2025-02-03 12:46 | XMS_ITS | Clinical Summary ---
Author Organization [facility] [employer] [facility] ity Address [address] [place] [address] Care Team Providers Care Agency Service Representative Name Role Phone Unavailable Primary Care Provider Unavailabl e Social History Tobacco Use Types Packs/Day Years Used Date Smoking Tobacco: Never Assessed Comments Unknown Sex and Gender Information Value Date Recorded Sex Assigned at Not on file Legal Sex Female 4:34 AM EST Gender Identity Not on file Sexual Orientation Not on file Plan of Treatment Health Maintenance Due Date Last Done Comments DTaP,Tdap,and Td Vaccines (1 - Tdap) 01/11/2015 Hepatitis B Vaccines (1 of 3 - 19+ 3-dose series) 01/11/2015 Cervical Cancer Screening: P ap Smear 01/11/2017 HIV Screening 03/10/2022 Hepatitis C Screening 03/10/2022 Social Influencers of Health Screening 03/10/2022 HPV Vaccines (1 - 3-dose SCD M series) 01/11/2023 Depression Screening 04/07/2024 COVID-19 Vaccine (1 - 2023-2 5 season) 2024 Influenza Vaccine (#1) 2024 RSV Immunization Adult Patie nts (1 - 1-dose 75+ series) 01/11/2071 HIB Vaccines Aged Out No longer eligi ble based on patient's age to complete this topic Hepatitis A Vaccines Aged Out No long er eligible based on patient's age to complete this topic IPV Vaccines Aged Out No longer eligi ble based on patient's age to complete this topic MMR Vaccines Aged Out No longer eligi ble based on patient's age to complete this topic Meningococcal ACWY Vaccine Aged Out N o longer eligible based on patient's age to complete this topic Meningococcal B Vaccine Aged Out No l onger eligible based on patient's age to complete this topic Pneumococcal Vaccine: Pediat rics (0 to 5 Years) and At-Risk Patients (6 to 49 Years) Aged Out No longer eligible b ased on patient's age to complete this topic RSV Immunization Patients Un madai 20 months Aged Out No longer eligible b ased on patient's age to complete this topic Varicella Vaccines Aged Out No longer eligible based on patient's age to complete this topic
--- OUTSIDE RECORDS SUMMARY | 2025-02-03 12:46 | XMS_ITS | Encounter Summary ---
Author Organization [employer] Address [address] [facility] [address] [place] [address] Care Team Providers Care [employer] Name Role Phone Brittnee Rowe MD Primary Care Provider + Reason for Visit * Reason Comments Med Refill Encounter Details Date Type Department Care Team ([facility] st Contact Info) Description 12/12/[address] [facility] MEDICINE [address] [place], [place] [phone] Brittnee Rowe MD [address] [place], [place] [phone] Social History Tobacco Use Types Packs/Day Years Used Date Smoking Tobacco: Never Passive Smoke Exposure: Never Smokeless Tobacco: Never Alcohol Use Standard Drinks/Week Comments Never 0 (1 standard drink = 0.6 oz pur e alcohol) Depression Answer Date Recorded Patient Health Questionnaire-9 Score 0 09/19/2023 Patient Health Questionnaire-9 Score 0 09/19/2023 Last PHQ-9: Questionnaire Data Not on file 0 09/19/2023 Housing Stability Answer Date Recorded What is your housing situation today? I have anton trinh 05/22/[address] you li ve. Do you have problems with any of the following? None of the above 05/22/2023 Food Insecurity Answer Date Recorded Within the [...] Date Recorded Patient Health Questionnaire-2 Score 0 09/19/2023 Comments No Sex and Gender Information Value Date Recorded Sex Assigned at Female 02/04/2022 10:17 AM EDT Legal Sex Female 10:17 AM EDT Gender Identity Female 02/04/2022 10:17 AM EDT Sexual Orientation Straight 02/04/2022 10 :17 AM EDT documented as of this encounter Plan of Treatment Upcoming Encounters Date Type Department Care Team (Late st Contact Info) Description 04/22/2025 11:30 AM EST Procedure Visit [facility] MEDICINE [address] [place] [phone] Brittnee Rowe MD [address] [place] [address] [phone] documented as of this encounter Visit Diagnoses Not on filedocumented in this encounter Additional Health Concerns Assessment Noted Time PHQ-9 Depression Total Score: 0 09/19/19 24 1:10 PM EDT documented as of this encounter Care Teams [employer] Relationship Specialty Start Date End Date Brittnee Rowe MD [address] [place] [address] [phone] PCP - General Family Medicine 02/12/16 documented as of this encounter
--- OUTSIDE RECORDS SUMMARY | 2025-02-03 12:46 | XMS_ITS | Encounter Summary ---
Author Organization [employer] Address [address] [facility] [address] [place] [address] Care Team Providers Care Electrical Prospecting Supervisor Name Role Phone Brittnee Rowe MD Primary Care Provider + Reason for Visit * Reason Onset Date Comments Chart prep 02/02/2025 Encounter Details Date Type Department Care Team ([facility] st Contact Info) Description 02/02/2025 Telephone [facility] [address] [place], [place] [phone] Brittnee Rowe MD [address] [place], [place] [phone] Chart prep Social History Tobacco Use Types Packs/Day Years [...] Access Q2 Not on file 07/23/2024 Comments Unknown Sex and Gender Information Value Date Recorded Sex Assigned at Female 02/04/2022 10:17 AM EDT Legal Sex Female 10:17 AM EDT Gender Identity Female 02/04/2022 10:17 AM EDT Sexual Orientation Straight 02/04/2022 10 :17 AM EDT documented as of this encounter Miscellaneous Notes * Telephone Encounter - Cl Hoang [place] - 02/02/2025 9:01 PM EDT Chart Prep Labs: not applicable Images: not applicable Referrals: not applicable Vaccines due: Covid and Flu Screenings: pap smear and LMP Overdue care gaps: Not applicable documented in this encounter Plan of Treatment Upcoming Encounters Date Type Department Care Team (Late st Contact Info) Description 04/22/2025 11:30 AM EST Procedure Visit [facility] MEDICINE [address] [place] [address] Brittnee Rowe MD [address] [place] [address] documented as of this encounter Visit Diagnoses Not on filedocumented in this encounter Additional Health Concerns Assessment Noted Time PHQ-9 Depression Total Score: 0 08/20/19 25 1:24 PM EDT documented as of this encounter Care Teams Electrical Prospecting Supervisor Relationship Specialty Start Date End Date Brittnee Rowe MD [address] [place] [phone] PCP - General Family Medicine 02/12/16 documented as of this encounter
--- OUTSIDE RECORDS SUMMARY | 2025-02-03 12:46 | XMS_ITS ---
Author Organization [employer] Address [address] [place] [address] [address] [address] Care Team Providers Care Cylinder Sander Operator Name Role Phone Brittnee Rowe MD Primary Care Provider + C3 CM High Risk Maternity Status:Enrolled (Active) Start date:07/14/2024 Enrollment date:08/19/2024 Enrollment reason:Risk Strat Overview HRM- Risk Strat Case Team Name Relationship Phone Elizabeth Saeed(Responsible Staff) Registered Nurse [phone] Continued Care and Services Coordination
--- OUTSIDE RECORDS SUMMARY | 2025-02-03 12:46 | XMS_ITS | Encounter Summary ---
Author Organization [employer] Address [address] [facility] [address] [place] [address] Care Team Providers Care Health Equipment Servicer Name Role Phone Brittnee Rowe MD Primary Care Provider + Reason for Visit * Reason Onset Date Comments Nurse Triage 01/31/2025 Encounter Details Date Type Department Care Team (Late st Contact Info) Description 01/31/[address] [facility] MEDICINE [address] [place], [place] [phone] Brittnee Rowe MD [address] [place], [place] [phone] Nurse Triage Social History Tobacco Use Types Packs/Day Years [...] encounter Miscellaneous Notes * Telephone Encounter - Dianna Aldana RN - 01/31/2025 2:52 PM EDT Call returned to pt. Pt denies loss of sense of taste. Pt reports that she had a cold one month ago. Reports she has noticed that she can barely smell since 12/25/24. Pt denies sob, cough, sore throat, fever, pain. No other symptoms reported. While offering appointment with pcp, pt states she is notable to keep schedule PE in March. Pt agrees to PE with PCP 02/03/25 at 9:45a. Recommended that pt call or RTC if symptoms worsen. Protocol Used: No Protocol Available (Adult) Protocol-Based Disposition: See in Office or Video Visit within 2 Weeks Video visit offer not recorded Positive Triage Question: * Nursing judgment * All higher-acuity triage questions were negative Care Advice Discussed: * Reasons To Call Back - New symptoms develop - You become worse * Telephone Encounter - Kimmy Barry - 01/31/2025 1:12 PM EDT Symptom: Loss of Taste or Smell Outcome: Schedule an appointment to be seen within 3 days Reason: Caller denied all higher acuity questions The caller accepted this outcome. Contact pt at [phone] documented in this encounter Plan of Treatment Upcoming Encounters Date Type Department Care Team (Late st Contact Info) Description 04/22/2025 11:30 AM EST Procedure Visit [facility] MEDICINE [address] [place] [address] Brittnee Rowe MD [address] [place] [address] documented as of this encounter Visit Diagnoses Not on filedocumented in this encounter Additional Health Concerns Assessment Noted Time PHQ-9 Depression Total Score: 0 08/20/19 25 1:24 PM EDT documented as of this encounter Care Teams Health Equipment Servicer Relationship Specialty Start Date End Date Brittnee Rowe MD [address] [place] [phone] PCP - General Family Medicine 02/12/16 documented as of this encounter
--- OUTSIDE RECORDS SUMMARY | 2025-02-03 12:46 | XMS_ITS | Encounter Summary ---
Author Organization [employer] Address [address] [facility] 7[address] [place] [address] Care Team Providers Care President And Chief Commercial Officer Name Role Phone Brittnee Rowe MD Primary Care Provider + Reason for Visit * Reason Comments Med Refill Encounter Details Date Type Department Care Team (Late st Contact Info) Description 11/02/2023 Refill [facility] MEDICINE [address] [place], [place] [phone] Elaine Castro, SAM [address] [place] [address] Social History Tobacco Use Types Packs/Day Years [...] encounter Miscellaneous Notes * Telephone Encounter - Elaine Castro CNM - 11/03/2023 8:19 AM EDT No - needs appt if vaginal symptoms. Should stop weekly fluconazole once previous rx completed. documented in this encounter Plan of Treatment Upcoming Encounters Date Type Department Care Team (Late st Contact Info) Description 04/22/2025 11:30 AM EST Procedure Visit [facility] MEDICINE [address] [place] [address] Brittnee Rowe MD [address] [place] [address] documented as of this encounter Visit Diagnoses Not on filedocumented in this encounter Additional Health Concerns Assessment Noted Time PHQ-9 Depression Total Score: 0 09/19/19 24 1:10 PM EDT documented as of this encounter Care Teams President And Chief Commercial Officer Relationship Specialty Start Date End Date Brittnee Rowe MD [address] [place] [address] PCP - General Family Medicine 02/12/16 documented as of this encounter
--- OUTSIDE RECORDS SUMMARY | 2025-02-03 12:46 | XMS_ITS | Clinical Summary ---
Author Organization [facility] Address [address] [place] [phone] Phone Care Team Providers Care Physical Education Specialist Name Role Phone Brittnee Rowe MD Primary Care Provider + Allergies No known active allergies Medications No known medications Active Problems Problem Noted Date Diagnosed Date Acute cystitis without hematuria 03/05/2024 Vaginal itching 03/05/2024 Encounters Date Type Department Care Team Description 12/21/2024 Transcribe Orders [facility] [address] [place] [address] Kyra Hooper DO Encounter for rehabilitation (Primary Dx) from Last 3 Months Immunizations Immunization Administration Dates Next Due Hepatitis B Adult 04/10/2016,1996,04/16/18 97,1996 MMR 01/21/2000,03/01/1997 Varicella 02/26/2008,05/07/2002 Social History Tobacco Use Types Packs/Day Years Used Date Smoking Tobacco: Never Assessed Education Answer Date Recorded Are you interested in more education? Not on jett e 03/08/2024 Are you concerned about learning? Not on file 03/08/2024 No 03/08/2024 No 03/08/2024 Digital Access Answer Date Recorded No 03/08/2024 No 03/08/2024 Reliable internet access at home? Not on file 03/08/2024 Device with a working camera? Not on file Comments Unknown Sex and Gender Information Value Date Recorded Sex Assigned at Not on file Legal Sex Female 12:25 PM EDT Gender Identity Not on file Sexual Orientation Not on file Last Filed Vital Signs Vital Sign Reading Time Taken Comments Blood Pressure 109/68 03/05/2024 2:07 PM EST Pulse 62 03/05/2024 2:07 PM EST Temperature 36.7 C (98 F) 03/05/2024 2:07 PM EST Respiratory Rate 17 03/05/2024 2:07 PM EST Oxygen Saturation 99% 03/05/2024 2:07 PM EST Inhaled Oxygen Concentration - - Weight 43.1 kg (95 lb) 03/05/2024 2:07 PM EST Height 149.9 cm (4' 11 ) 03/05/2024 2:07 PM EST Body Mass Index 19.19 03/05/2024 2:07 PM EST Plan of Treatment Upcoming Encounters Date Type Department Care Team (Late st Contact Info) Description 03/17/2025 8:30 AM EST Office Visit [address] [place] [address] Kyra Hooper, DO [address] [place] [address] [phone] Madison Gudino, PT [address] [place] [address] 03/24/2025 8:30 AM EST Office Visit [address] [place] [address] Kyra Hooper, DO [address] [place] [address] [phone] Madison Gudino, PT [address] [place] [address] 04/08/2025 8:30 AM EST Office Visit [address] [place] [address] Kyra Hooper, DO [address] [place] [phone] Madison Gudino, PT [address] [place] [address] 04/12/2025 8:30 AM EST Office Visit [facility] [address] [place] [address] OtmaRiya felizbeth A, DO [address] [place] [phone] Madison Gudino, PT [address] [place] [address] 04/14/2025 8:30 AM EST Office Visit [facility] [address] [place] [address] OtmaKyra feliz A, DO [address] [facility] [place] [address] Madison Gudino, PT [address] [place] [address] 04/21/2025 8:30 AM EST Office Visit [facility] [address] [place] [address] [place] [address] [place] [address] [place] [phone] Madison Gudino, PT 8 [place] [address] 04/28/2025 8:30 AM EST Office Visit [facility] [address] [place] [address] [place] [address] [place] [address] [place] [address] Madison Gudino, PT [address] [place] [address] 05/05/2025 8:30 AM EST Office Visit [facility] [address] [place] [address] OtKyra kahn A, DO [address] [place] [address] Madison Gudino, PT [address] [place] [address] [email or web address] Maintenance Due Date Last Done Comments Adult Td,Tdap Booster 1996 DEPRESSION SCREENING 2008 SMOKING Hx and SMOKELESS TOB ACCO SCREENING 01/11/2009 PAP SMEAR 01/11/2017 INFLUENZA VACCINE (#1) 2024 COVID-19 VACCINE ( - 2024-2 6 season) 2024 HIV ONE-TIME SCREENING (18-6 5 YEARS) Completed 04/13/2024 HEPATITIS C SCREENING Completed 04/27/2024 HEPATITIS A VACCINES Aged Out No long er eligible based on patient's age to complete this topic HIB VACCINES Aged Out No longer eligi ble based on patient's age to complete this topic MENINGOCOCCAL VACCINES (ACWY) Aged Out No longer eligible based on patient's age to complete this topic MENINGOCOCCAL VACCINES (B) Aged Out N o longer eligible based on patient's age to complete this topic PNEUMOCOCCAL VACCINES (0-49 years) Aged Out No longer eligible based on patient's age to complete this topic Medical Devices Not on file Procedures Procedure Name Priority Date/Time Associated Diagnosis Comments HEPATITIS C ANTIBODY, QUALITATIVE Routine 04/27/2024 1:33 PM EST Need for hepatitis C screening test from Last 3 Months or Most Recently Relevant to Health Maintenance Results * Hepatitis C antibody, qualitative (04/27/2024 1:33 PM EST) HCV NON-REACTIV E NON-REACTI VE [facility] Blood 04/27/2024 1:33 PM EST 04/27/2024 1:39 PM EST Audrey Foster DO LAB BLOOD ORDERABLES Taylor giles Result [facility] [address] [place] [address] from Last 3 Months or Most Recently Relevant to Health Maintenance Insurance [id number] [place] [address] C3 [employer] C3 A[id number] C3 [employer] C3 [facility] C3 ACO [id number] C3 ACO Care Teams Physical Education Specialist Relationship Specialty Start Date End Date Brittnee Rowe MD [address] [place] [phone] PCP - General Internal Medicine 01/13/25 Additional Source Comments The information contained in this document represents components of the legal health record. It is not the complete legal health record.[facility]
--- OUTSIDE RECORDS SUMMARY | 2025-02-03 12:46 | XMS_ITS | Encounter Summary ---
Author Organization [employer] Address [address] [facility] 7t [place] [address] Care Team Providers Care Funeral Home Associate Name Role Phone Brittnee Rowe MD Primary Care Provider + Reason for Visit * Reason Comments Med Refill Encounter Details Date Type Department Care Team (Late st Contact Info) Description 11/03/2023 Refill [facility] MEDICINE [address] [place], [place] [phone] Elaine Castro, SAM [address] [place] [address] Social History Tobacco Use Types Packs/Day Years [...] Description 04/22/2025 11:30 AM EST Procedure Visit [facility] MEDICINE [address] [place] [address] Brittnee Rowe MD [address] [place] [address] [phone] documented as of this encounter Visit Diagnoses Not on filedocumented in this encounter Additional Health Concerns Assessment Noted Time PHQ-9 Depression Total Score: 0 09/19/19 24 1:10 PM EDT documented as of this encounter Care Teams Funeral Home Associate Relationship Specialty Start Date End Date Brittnee Rowe MD [address] [place] [address] [phone] PCP - General Family Medicine 02/12/16 documented as of this encounter
--- OUTSIDE RECORDS SUMMARY | 2025-02-03 12:46 | XMS_ITS | Encounter Summary ---
Author Organization [employer] Address [address] [facility] 7t [place] [address] Care Team Providers Care Watch Electrician Name Role Phone Brittnee Rowe MD Primary Care Provider + Reason for Visit * Reason Comments Med Refill Encounter Details Date Type Department Care Team (Late st Contact Info) Description 11/05/2023 Refill [facility] MEDICINE [address] [place], [place] [phone] Elaine Castro, SAM [address] [place] [address] Social History Tobacco Use Types Packs/Day Years [...] Description 04/22/2025 11:30 AM EST Procedure Visit [facility] MED[facility]INE [address] [place] [address] Brittnee Rowe MD [address] [place] [address] [phone] documented as of this encounter Visit Diagnoses Not on filedocumented in this encounter Additional Health Concerns Assessment Noted Time PHQ-9 Depression Total Score: 0 09/19/19 24 1:10 PM EDT documented as of this encounter Care Teams Watch Electrician Relationship Specialty Start Date End Date Brittnee Rowe MD [address] [place] [address] [phone] PCP - General Family Medicine 02/12/16 documented as of this encounter
--- OUTSIDE RECORDS SUMMARY | 2025-02-03 12:46 | XMS_ITS | Encounter Summary ---
Author Organization [employer] Address [address] [facility] [address] [place] [address] Care Team Providers Care Production Control Expediter Name Role Phone Brittnee Rowe MD Primary Care Provider + Reason for Visit * Reason Comments Med Refill Encounter Details Date Type Department Care Team ([facility] st Contact Info) Description 12/06/2023 Refill [facility] MEDICINE [address] [place], [place] [phone] Brittnee Rowe MD [address] [place], [place] [phone] Social History Tobacco Use Types Packs/Day Years [...] Description 04/22/2025 11:30 AM EST Procedure Visit [facility] MEDICINE [address] [place] [address] Brittnee Rowe MD [address] [place] [address] [phone] documented as of this encounter Visit Diagnoses Not on filedocumented in this encounter Additional Health Concerns Assessment Noted Time PHQ-9 Depression Total Score: 0 09/19/19 24 1:10 PM EDT documented as of this encounter Care Teams Production Control Expediter Relationship Specialty Start Date End Date Brittnee Rowe MD [address] [place] [address] [phone] PCP - General Family Medicine 02/12/16 documented as of this encounter
--- OUTSIDE RECORDS SUMMARY | 2025-02-03 12:46 | XMS_ITS ---
Author Organization [employer] Address [address] [place] [address] 7 [place] [address] Care Team Providers Care Senior Account Manager Name Role Phone Brittnee Rowe MD Primary Care Provider + C3 CM Maternal Advocate Status:Enrolled (Active) Start date:07/14/2024 Enrollment date:07/23/2024 Enrollment reason:Risk Strat Overview HRM- Risk Strat Case Team Name Relationship Phone Honey Ta(Responsible Staff) [phone] Continued Care and Services Coordination
--- OUTSIDE RECORDS SUMMARY | 2025-02-03 12:46 | XMS_ITS | Encounter Summary ---
Author Organization [employer] Address [address] [facility] 7 [place] [address] Care Team Providers Care Employee Benefits Insurance Agent Name Role Phone Brittnee Rowe MD Primary Care Provider + Reason for Visit * Reason Comments Care Management C3CM follow up call Encounter Details Date Type Department Care Team ([facility] st Contact Info) Description 02/03/2025 Patient Outreach [facility] MEDICINE [address] [place] [address] [phone] Brittnee Rowe MD [address] [place], [place] [phone] Care Management (C3CM follow up call) Social History Tobacco Use Types Packs/Day Years [...] AM EDT documented as of this encounter Progress Notes * Elizabeth Saeed - 02/03/2025 11:04 AM EDT CM Elizabeth Saeed RN placed outbound call to patient. Patient's name, and address confirmed.Patient states is doing well with no recent illnesses or emergency room visits. Patient and infant are doing well. attended 2 month appointment and received vaccinations with no adverse effects. is scheduled for 4 month appointment and no concerns with feeding or development. Patient continues to breastfeed and is not experiencing any difficulties with latch or milk supply. Patient was referred to [facility] dermatology for wart on hand and patient aware to look out forphone call for scheduling. Improvement Intern reviewed physical appointment that she attended today. No changes in treatment plan. Pcp did order labs and patient states that she completed after her appointment. Patient states that she is doing well emotionally and settling into a routine. Patient is scheduled for her first physical therapy appointment for pelvic floor on 03/17/25. No further questions or concerns. CM reinforced direct contact information or CHW for any additional questions or concerns. Education provided on [facility]. Patient provided with after-hours line for [facility], , which offer night time triage service and option to transfer to control clerk head provider if needed. Patient verbalizes understanding, and able to repeat back to grant writer. A follow up call will be placed within 1 month, patientagrees with plan. documented in this encounter Miscellaneous Notes * Care Plan - Elizabeth Saeed - 02/03/2025 11:04 AM EDT Active Barriers to Care Manage Barriers to Care (Progressing) Start: 08/19/24 Expected End: 11/01/25 I will gather all necessary baby supplies, including diapers, clothes, a crib, and a car seat, by the time I reach 35 weeks of , ensuring I have everything ready and organized for my baby'sarrival. Goal Note No needs identified. Medication Concerns Improve Medication Adherence (Progressing) Start: 08/19/24 Expected End: 11/01/25 I will take my vitamin every day for the next 4 weeks by setting a daily phone reminder and tracking my intake on a calendar to help ensure a healthy . Goal Note No changes in medication. & & (Progressing) Start: 08/19/24 Expected End: 11/01/25 The patient will successfully breastfeed her at least 8 times per day for the first 2 weeks, with support from a internet sales consultant if needed, to promote adequate nutrition and bonding. The patient will attend her check-up within 6 weeks of delivery to monitor recovery andaddress any complications. I will consistently care for my by feeding every 2-3 hours, ensuring safe sleep practices,and maintaining hygiene for the next 4 weeks, tracking my progress in an willian and reviewing with my water mechanic at the next visit. Goal Note Patient continues to breastfeed and is not experiencing any difficulties with latch or milk supply.Patient states that she is doing well emotionally and settling into a routine. Patient is scheduledfor her first physical therapy appointment for pelvic floor on 03/17/25. Self Management Patient/caregiver takes an active role in self-managing condition (Progressing) Start: 08/19/24 Expected End: 11/01/25 I will attend all of my scheduled medical appointments for the next 3 months and will notify my healthcare provider if I need to reschedule to ensure my health condition is properly managed. Goal Note Infant attended 2 month appointment and received vaccinations with no adverse effects. Infant is scheduled for 4 month appointment and no concerns with feeding or development. Patient continues to breastfeed and is not experiencing any difficulties with latch or milk supply. [facility] and patient aware to look out for phone call bhaskar. Improvement Intern reviewed physical appointment that she attended today. No changes in treatment plan. Pcp did order labs and patient states that she completed after her appointment. Patient states that she is doing well emotionally and settling into a routine. Patient is scheduled for her first physical therapy appointment for pelvic floor on 03/17/25. documented in this encounter Plan of Treatment Upcoming Encounters Date Type Department Care Team (Late st Contact Info) Description 04/22/2025 11:30 AM EST Procedure Visit [facility] MEDICINE [address] [place] [address] Brittnee Rowe MD [address] [place] [address] documented as of this encounter Visit Diagnoses Not on filedocumented in this encounter Additional Health Concerns Assessment Noted Time PHQ-9 Depression Total Score: 0 08/20/19 25 1:24 PM EDT documented as of this encounter Care Teams Employee Benefits Insurance Agent Relationship Specialty Start Date End Date Brittnee Rowe MD [address] [place] [address] PCP - General Family Medicine 02/12/16 documented as of this encounter
--- OUTSIDE RECORDS SUMMARY | 2025-02-03 12:46 | XMS_ITS | Encounter Summary ---
Author Organization [employer] Address [address] [facility] 7t [place] [address] Care Team Providers Care Cook Fish Eggs Name Role Phone Brittnee Rowe MD Primary Care Provider + Encounter Details Date Type Department Care Team (Latest Contact Info) Description 02/03/2025 Travel Social History Tobacco Use Types Packs/Day Years [...] 04/22/2025 11:30 AM EST Procedure Visit [facility] MEDICINE [address] [place] [address] Brittnee Rowe MD [address] [place] [address] documented as of this encounter Visit Diagnoses Not on filedocumented in this encounter Additional Health Concerns Assessment Noted Time PHQ-9 Depression Total Score: 0 08/20/19 25 1:24 PM EDT documented as of this encounter Care Teams Cook Fish Eggs Relationship Specialty Start Date End Date Brittnee Rowe MD [address] [place] [phone] PCP - General Family Medicine 02/12/16 documented as of this encounter
[2025-02-04 00:57] LABS: Bacterial Vaginosis PCR POSITIVE (Negative); Candida Group PCR NOT DETECTED (Not Detect); Candida glab krusei PCR NOT DETECTED (Not Detect); Trichomonas vaginalis PCR NOT DETECTED (Not Detect)
[2025-02-04 01:06] LABS: CT PCR Urine NOT DETECTED (Not Detect.); NG PCR Urine NOT DETECTED (Not Detect.)
[2025-02-04 04:21] LABS: Syphilis Screen Nonreactive (Nonreactive)
== END 2025-02-03 10:28 | disposition home or self-care (01) ==
LOC: HO.HHCL 10:27
PROVIDERS: PCP Internal Medicine; Visit Provider Internal Medicine
DX: Z11.4 Encounter for screening for human immunodeficiency virus [HIV] (principal); Z20.2 Contact with and (suspected) exposure to infections with a predominantly sexual mode of transmission; Z11.59 Encounter for screening for other viral diseases; N94.9 Unspecified condition associated with female genital organs and menstrual cycle
CPT/HCPCS: 36415; 81515; 82728; 84443; 85025; 86704; 86706; 86709; 86780; 86803; 87340; 87389; 87491; 87591